=== PATIENT | male | born 1990 | race Caucasian/White ===

== ENCOUNTER 2016-11-19 23:54 | Emergency (ER) | payer BC ==
[2016-11-20] VITALS: BP 144/88
== END 2016-11-20 00:50 | disposition home or self-care (01) ==
LOC: ED 23:54
DX: S01.81XA Laceration without foreign body of other part of head, initial encounter (principal); W16.512A Jumping or diving into swimming pool striking water surface causing other injury, initial encounter; Y93.11 Activity, swimming; Y92.34 Swimming pool (public) as the place of occurrence of the external cause; Y99.8 Other external cause status
CPT/HCPCS: 90715; J2001

== ENCOUNTER 2016-11-21 20:20 | Emergency (ER) | payer BC ==
[2016-11-21 21:15] VITALS: BP 143/76
== END 2016-11-21 21:15 | disposition home or self-care (01) ==
LOC: ED 20:20
DX: S01.81XD Laceration without foreign body of other part of head, subsequent encounter (principal); X58.XXXD Exposure to other specified factors, subsequent encounter; Y99.8 Other external cause status; Y92.89 Other specified places as the place of occurrence of the external cause